=== PATIENT | female | born 2000 | race Caucasian/White ===

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

== ENCOUNTER 2023-01-27 13:11 | Emergency (ER) | payer OTHER ==
[~2023-01-27] VITALS: Ht 177.8 cm; Wt 67.1 kg
[2023-01-27 13:37] VITALS: BP 122/70
[2023-01-27 14:01] LABS: BASOPHILS % (AUTO) 0.6 % (0.0-2.0); EOSINOPHILS # (AUTO) 0.1 K/uL (0-0.4); EOSINOPHILS % (AUTO) 0.9 % (0.0-4.0); HEMATOCRIT 36.9 % (36-48); HEMOGLOBIN 12.6 g/dL (12.0-16.0); LYMPHOCYTES # (AUTO) 1.7 K/uL (2.5-16.5); LYMPHOCYTES % (AUTO) 25.1 % (20.5-51.1); MEAN CORPUSCULAR HEMOGLOBIN 29 pg (27-31); MEAN CORPUSCULAR HGB CONC 34 g/dL (33-37); MEAN CORPUSCULAR VOLUME 83.8 fL (80-94); MONOCYTES # (AUTO) 0.6 K/uL (0.8-1.0); NEUTROPHILS # (AUTO) 4.5 K/uL (1.8-7.7); NEUTROPHILS % (AUTO) 64.4 % (42.2-75.2); PLATELET COUNT (AUTO) 266 K/uL (140-450); RED CELL DISTRIBUTION WIDTH 14.4 % (11.6-13.7); WHITE BLOOD COUNT (AUTO) 6.9 K/uL (4.5-11.0)
[2023-01-27 15:11] LABS: BILIRUBIN,URINE 1+ (NEGATIVE); BLOOD, URINE 3+ (NEGATIVE); COLOR,URINE YELLOW (YELLOW); LEUKOCYTE ESTERASE ,URINE TRACE (NEGATIVE); NITRITE, URINE NEGATIVE (NEGATIVE); UGLUCOSE NEGATIVE (NEGATIVE)
[2023-01-27 15:55] LABS: APPEARANCE,URINE HAZY (CLEAR)
[2023-01-27 15:58] LABS: RBC,URINE 20-50 /HPF (0-5)
[2023-01-27 17:57] VITALS: BP 137/68
--- NOTE | 2023-01-27 17:57 | NUR ---
Patient discharged with v/s stable. Written and verbal after care instructions given. Patient verbalized understanding. Ambulatory with steady gait. All questions addressed prior to discharge. Advised to follow up with PMD.
== END 2023-01-27 17:57 | disposition home or self-care (01) ==
LOC: MED 13:11
DX: O20.0 Threatened abortion (principal); O13.1 Gestational [pregnancy-induced] hypertension without significant proteinuria, first trimester; Z3A.13 13 weeks gestation of pregnancy
CPT/HCPCS: 36415; 81001; 84702; 85025; 86900; 86901; 99284